=== PATIENT | female | born 1975 | race Two or more races ===

== ENCOUNTER 2020-06-21 04:34 | Day surgery (SDC) | payer OTHER ==
[2020-06-17 14:59] VITALS: BMI 24.9
[2020-06-21] MEDS ORDERED: MIDAZOLAM HCL 2 MG/2 ML SINGLE DOSE VIAL ONE (16:24)
[2020-06-21] MEDS ORDERED: GLYCOPYRROLATE 0.2 MG/1 ML VIAL ONE (16:24)
[2020-06-21] MEDS ORDERED: KETAMINE HCL 200 MG/20 ML VIAL ONE (16:36)
[2020-06-21] MEDS ORDERED: PROPOFOL 20 ML ONE (16:40)
--- NOTE | 2020-06-21 16:59 | OP ---
Operative Note - Note: Operative Date: 06/21/20 Pre-Operative Diagnosis: Left renal stone Operation: Left ESWL Findings: 8 mm lower pole Left renal stone Post-Operative Diagnosis: Same as Pre-op Surgeon: Sam Garrett Anesthesia: Regional Estimated Blood Loss (mls): 0 Operative Report Dictated: Yes
[2020-06-21 17:43] VITALS: TEMP 95.7
[2020-06-21 18:40] VITALS: BP 156/78; PULSE 58
--- NOTE | 2020-06-21 20:51 | OP ---
DATE OF OPERATION: 06/21/2020 PREOPERATIVE DIAGNOSIS: Left renal stone. POSTOPERATIVE DIAGNOSIS: Left renal stone. PROCEDURE: Left extracorporeal shockwave lithotripsy. ATTENDING: Puneet Garrett M.D. ANESTHESIA: Fractional. DESCRIPTION OF PROCEDURE: Patient was brought in the operating room, placed in a supine position on the operating room table. Ultrasonography and fluoroscopy were performed. An 8-mm left lower pole stone was identified. Anesthesia and preoperative antibiotics were then administered. Shockwave lithotripsy was then performed. 2500 impulses at 17 joules of power were administered to the stone with excellent fragmentation noted under realtime ultrasonography and fluoroscopy. No complications were noted. DISPOSITION: To recovery room. PUNEET PICHARDO M.D. [id number]
== END 2020-06-21 18:35 | disposition home or self-care (01) ==
LOC: JASU-SURG 04:34
PROVIDERS: ATTEND Urology
PROC: 0TF4XZZ Fragmentation in Left Kidney Pelvis, External Approach (ICD-10-PCS; principal; 2020-06-21 14:30)
DX: N20.0 Calculus of kidney (principal)
CPT/HCPCS: 81025

== ENCOUNTER → 2022-09-20 | Day surgery (SDC) | payer MEDICARE, OTHER | END | disposition home or self-care (01) | LOC: JRADUS-SUR 11:27 → JMAMMOTONE 11:27 | PROVIDERS: ATTEND Registered Nurse | PROC: 0H9T3ZX Drainage of Right Breast, Percutaneous Approach, Diagnostic (ICD-10-PCS; principal; 2022-09-20) | DX: D24.1 Benign neoplasm of right breast (principal) | CPT/HCPCS: 19083; 87899; 88305-TC; A4648 ==